=== PATIENT | male | born 1945 | race Hispanic/Latino ===

== ENCOUNTER 2017-02-25 06:40 | Day surgery (SDC) | payer MEDICARE ==
[2017-02-21 13:44] VITALS: BP 125/55
[2017-02-21 14:00] LABS: BASOPHILS % (AUTO) 0.4 % (0.0-5.0); EOSINOPHILS % (AUTO) 2.3 % (0.0-8.0); HEMATOCRIT 28.5 % (42-54); LYMPHOCYTES % (AUTO) 22.5 % (21.0-51.0); MEAN CORPUSCULAR HEMOGLOBIN 29.9 pg (27.0-33.0); MEAN CORPUSCULAR HGB CONC 33.2 g/dL (32.0-36.0); MONOCYTES % (AUTO) 5.7 % (3.0-13.0); NEUTROPHILS % (AUTO) 69.1 % (40.0-77.0); PLATELET COUNT (AUTO) 212 K/uL (130-400); RED BLOOD CELL COUNT(AUTO) 3.17 MIL/uL (4.50-6.20); RED CELL DISTRIBUTION WIDTH 16.8 % (11.0-15.5); WHITE BLOOD COUNT (AUTO) 10.4 K/uL (4.8-10.8)
[2017-02-21 14:08] LABS: CREATININE 1.4 mg/dL (0.5-1.5); POTASSIUM 4.2 mmol/L (3.5-5.1)
[~2017-02-25] VITALS: Ht 161.3 cm; Wt 75.3 kg
[2017-02-25] VITALS (14 sets, daily range): BP systolic 103–126; BP diastolic 39–62
[~2017-02-25 06:40] MED LIST: LACTATED RINGERS 1000ML 1,000 ML IV SCH
[2017-02-25] MEDS ORDERED: SODIUM CHLORIDE 0.9% 1000ML 1,000 ML IV ONE (07:16)
[2017-02-25] MEDS ORDERED: PROPOFOL 10 MG/ML 20ML VIAL IV ONE (07:44)
[2017-02-25] MEDS ORDERED: FENTANYL CITRATE PF 50 MCG/1 ML 2ML VIAL ONE (07:44)
[2017-02-25] MEDS ORDERED: SUCCINYLCHOLINE 200MG/10ML SYR ONE (07:44)
[2017-02-25] MEDS ORDERED: ONDANSETRON HCL 4 MG/2 ML VIAL ONE (07:44)
[2017-02-25] MEDS ORDERED: ROCURONIUM BROMIDE 10MG/1ML 5ML VL ONE (07:44)
[2017-02-25] MEDS ORDERED: LIDOCAINE HCL MPF 1% 5ML VIAL ONE (07:44)
[2017-02-25] MEDS ORDERED: LIDOCAINE HCL 2% PF 20 ML JEL DISP.SYRIN MM ONE (08:03)
[2017-02-25] MEDS ORDERED: ACET-2247 PO (08:29)
[2017-02-25] MEDS ORDERED: DOCU100T PO (08:29)
[2017-02-25] MEDS ORDERED: DUTA0.5C15 PO (08:29)
[2017-02-25] MEDS ORDERED: METF10004 PO (08:29)
[2017-02-25] MEDS ORDERED: AMLO5TAB2 PO (08:29)
[2017-02-25] MEDS ORDERED: ASPI-1197 PO (08:29)
[2017-02-25] MEDS ORDERED: MAGN400O17 PO (08:29)
[2017-02-25] MEDS ORDERED: TRAZ150T79 PO (08:29)
[2017-02-25] MEDS ORDERED: MELO-106 PO (08:29)
[2017-02-25] MEDS ORDERED: PIOG45TA17 PO (08:29)
[2017-02-25] MEDS ORDERED: TAMS0.4C32 PO (08:29)
[2017-02-25] MEDS ORDERED: BRIM5DRO4 OP (08:29)
[2017-02-25] MEDS ORDERED: NITR0.4T SL (08:29)
== END 2017-02-25 10:40 ==
LOC: DAH 06:40
PROVIDERS: ATTEND Surgery
DX: N40.0 Benign prostatic hyperplasia without lower urinary tract symptoms (principal); N32.89 Other specified disorders of bladder; J45.909 Unspecified asthma, uncomplicated; E11.9 Type 2 diabetes mellitus without complications; I25.10 Atherosclerotic heart disease of native coronary artery without angina pectoris; E78.5 Hyperlipidemia, unspecified; I10 Essential (primary) hypertension; Z90.49 Acquired absence of other specified parts of digestive tract; Z98.890 Other specified postprocedural states; Z79.4 Long term (current) use of insulin
CPT/HCPCS: 36415; 52000; 80048; 82948 ×2; 85025; 87088; 93005; A4358; J0330; J2405; J2704; J3010; J3490; J7030; J7120